=== PATIENT | female | born 1935 | race Caucasian/White ===

== ENCOUNTER → 2019-08-21 15:25 | Outpatient (BNVA) | payer MEDICARE, MEDICAID, SELFPAY | PROVIDERS: Family Provider Nurse Practitioner; PCP Nurse Practitioner; Visit Provider Nurse Practitioner | DX: E11.9 Type 2 diabetes mellitus without complications (principal); I10 Essential (primary) hypertension; E03.8 Other specified hypothyroidism | CPT/HCPCS: 80053; 80061; 83036; 84443 ==

== ENCOUNTER 2019-08-24 15:21 | Emergency (ER) | payer MEDICARE, MEDICAID, SELFPAY ==
[2019-08-24 15:27] VITALS: BP 182/88; PULSE 85; RESP 18; TEMP 36.4; O2SAT 93; BMI 32.8
[2019-08-24 15:37] VITALS: BP 182/88; PULSE 80; RESP 18; O2SAT 96
--- NOTE | 2019-08-24 16:24 | ED_ITS ---
HPI - Back Pain/Injury General: Chief Complaint: Back Pain/Injury Stated Complaint: back/shoulder/right arm pain Time Seen by Provider: 08/24/19 15:40 Source: patient and family Mode of arrival: ambulatory Limitations: no limitations History of Present Illness: HPI Narrative: Patient is a very pleasant 84-year-old female who presents to ED today along with family for complaints of pain between my shoulder blades that patient initially noticed while at rest 2 to 3 days ago; she states since that time pain has been intermittent but seems to be worsened with movement and improves by sitting still; patient states that she can sit in her recliner and kick her legs up her pain will completely subside; she denies any radicular symptoms over the past 2 to 3 days; she reports no chest pain, difficulty breathing, shortness of breath, palpitations, headache, numbness/tingling/weakness to face or extremities. Family brought patient in today because while they were driving with the patient she began complaining of right arm pain; she states the pain began in her right shoulder and then radiated down her right extremity; she denies numbness/tingling; she reports the pain can be aggravated by range of motion of her shoulder; she reports if she squeezes her forearm that seems to alleviate some of the pain; she has not noticed any redness/pallor, warmth, or swelling to the extremity; patient does report a fall several days ago but was evaluated at her PCP office and did not have any complaints of right arm or back pain; when questioned patient states she was doing some cleaning including sweeping and grabbing close out of a washing machine and wonders if maybe she could have strained something MD elicited complaint: back pain and other (R UE pain) Onset (ago): day(s) Timing: intermittent Similar Symptoms Previously: No Exacerbating factors: movement Relieving factors: immobilization and sitting upright Associated symptoms: Deny abdominal pain, chills, dysuria, fatigue, fever(s), nausea, syncope, urinary urgency or vomiting Review of Systems Const: Denies: fever, chills, body aches, fatigue, malaise or night sweats Eyes: Denies: change in vision or blurry vision Card: Denies: chest pain, palpitations, irregular heart rhythm, edema, swelling of feet/ankles, lightheadedness, syncope, pre-syncope, shortness of breath on exertion, shortness of breath when lying down, leg pain with exertion or bluish discoloration of hands/feet Resp: Denies: shortness of breath, productive cough, non-productive cough, pain on inspiration, change in phlegm color, coughing up blood or chest congestion GI: Denies: abdominal pain, nausea or vomiting : Denies: flank pain, difficulty urinating, painful urination, urinary frequency or urinary urgency Musc: Reports: back pain, extremity pain (R UE) and joint pain (R shoulder, elbow); Denies: neck pain, extremity swelling, joint swelling, redness, joint warmth, joint stiffness, limited range of motion, muscle cramps, muscle weakness or decrease in muscle mass Skin/Breast: Denies: rash, itching, redness, skin pain, skin tenderness, skin swelling or changes in skin color Neuro: Denies: headache, numbness in extremities, weakness in extremities, changes in sensation, lack of coordination, dizziness or slurred speech PFSH ED PFSH: Statuses (acute, chronic, etc) shown below reflect problem list status as previously entered and may not be historically accurate Medical History (Updated 08/24/19 @ 16:28 by VANGIE Pruitt) Adult onset hypothyroidism (Chronic) Anxiety (Chronic) HTN, goal below 130/80 (Chronic) Vitamin D deficiency (Chronic) Surgical History (Updated 08/16/19 @ 17:16 by WILL Vieira) History of hysterectomy (Acute) 2014 Family History (Updated 08/16/19 @ 16:02 by REKHA Douglas) Other Hypertension Social History (Updated 08/16/19 @ 15:37 by REKHA Douglas) Smoking and tobacco status: never smoked Smoking risk assessment/counseling performed?: No Alcohol intake: never Desire information about alcohol rehabilitation?: No Counseling given: No Desire information about substance/drug rehabilitation?: No Counseling given: No Adopted: No Caregiver/support person: No Lives independently: Yes Household members: none Housing: House Marital status: / Number of children: 5 service: No Current occupational status: retired and disabled Pets and animals: Yes Pets & animals: cat(s) History of recent travel: No Current gender identity: Female Physical Exam Const: COMMON NORMALS: no apparent distress, average body habitus, oriented x3, no limitations, healthy appearing, alert and well nourished HENMT: COMMON NORMALS: normocephalic and head/scalp atraumatic HEAD & SCALP: normocephalic and atraumatic Eye: COMMON NORMALS: PERRL and EOMs intact bilaterally PUPIL: Yes PERRL Neck/C-Spine: COMMON NORMALS: full ROM, supple and no meningeal signs CERVICAL SPINE: No pain with cervical ROM, No cervical spine tenderness and No paracervical muscle tenderness Chest: COMMONS NORMALS: inspection of chest normal and palpation of chest normal Resp: COMMON NORMALS: normal respiratory effort and clear to auscultation bilaterally AUSCULTATION: clear to auscultation bilaterally Cardio: COMMON NORMALS: regular rate and regular rhythm RATE: regular rate RHYTHM: regular rhythm : COMMON NORMALS: Yes no CVA tenderness BLADDER/KIDNEY EXAM: Yes no CVA tenderness Back/Pelvis: COMMON NORMALS: no CVA tenderness and thoracic and lumbar spine normal to inspection THORACIC SPINE/UPPER BACK: Yes normal to inspection, Yes thoracic ROM normal and No thoracic spinal tenderness Extremity: OTHER: pt reports pain to R scapula/trapezius musculature with ROM of shoulder joint but states that palpation makes the pain actually improve; she reports pain to her R forearm but again squeezing the forearm makes it feel good ; she reports pain again to R shoulder when she leans against it on the bed; there is no redness, swelling, color/temp changes to her R UE; she maintains full ROM of all joints; pulses are intact and equal bilaterally Neuro: COMMON NORMALS: oriented x3, CN's II-XII intact bilaterally, moves all extremities, no focal motor deficits and no sensory deficits noted SENSORIUM/ORIENTATION: Yes alert MENINGEAL SIGNS: Yes no meningeal signs SPEECH: speech normal MOTOR EXAM: no pronator drift Skin: COMMON NORMALS: no rashes or lesions noted GENERAL SKIN EXAM: no rashes or lesions noted Course Vital Signs: Vital signs: Vital Signs Temperature 97.5 F L 08/24/19 15:27 Pulse Rate 80 08/24/19 15:37 Respiratory Rate 18 08/24/19 15:37 Blood Pressure 182/88 08/24/19 15:37 Pulse Oximetry 96 08/24/19 15:37 MDM - Back Pain/Injury MDM Narrative: Medical decision making narrative: The family seems very concerned regarding patient's symptoms. I spent a great deal of time with the patient and their family performing a thorough history. I have no concern for any emergent pathology at this time based on that history and her physical examination. She has no indications for x-rays, ultrasounds, or other advanced imaging and I explained to family that these tests would most likely not yield any results as I feel patient's discomfort is solely musculoskeletal. Recommend patient follow-up with her primary care provider for continued discomfort. Discharge Plan Discharge Patient Disposition: Home, Self-Care Clinical Impression: Musculoskeletal pain Condition: Stable Prescriptions: No Action promethazine-DM 6.25-15 mg/5 mL syrup PO RF: 0 nystatin 100,000 unit/gram powder TOPICAL RF: 0 aspirin 325 mg tablet 325 mg PO QDAY RF: 0 albuterol sulfate [ProAir HFA] 90 mcg/actuation HFA aerosol inhaler 2 puff INHALATION QID RF: 0 diclofenac sodium [Voltaren] 1 % gel 2 gm TOPICAL QID PRNRF: 0 albuterol sulfate 2.5 mg /3 mL (0.083 %) solution for nebulization 2.5 mg INHALATION Q4H PRNRF: 0 amlodipine 5 mg tablet 5 mg PO QDAY Qty: 90 RF: 1 benazepril 40 mg tablet 40 mg PO QDAY Qty: 90 RF: 1 ergocalciferol (vitamin D2) 50,000 unit capsule 50,000 unit PO .on 1st and 16th Qty: 6 RF: 1 famotidine [Pepcid] 20 mg tablet 20 mg PO BID Qty: 180 RF: 1 furosemide 20 mg tablet 20 mg PO QAM Qty: 90 RF: 1 lactulose 10 gram/15 mL solution 2.5 ml PO QDAY Qty: 500 RF: 5 levothyroxine 75 mcg tablet 75 mcg PO QDAY Qty: 90 RF: 1 lovastatin 40 mg tablet 40 mg PO QDAY Qty: 90 RF: 1 metoprolol succinate 100 mg tablet extended release 24 hr 100 mg PO QDAY Qty: 90 RF: 1 montelukast 10 mg tablet 10 mg PO QDAY Qty: 90 RF: 1 Discharge Orders: Discharge Order (Routine); Ordered 08/24/19 Ordered By: Mona Sharma Referrals: Emily Decker, [employer] MANAGER-C [Primary Care Provider] - Activity Restrictions/Additional Instructions: As discussed your back pain, shoulder pain, and right arm pain was reproducible on physical examination and worse with movement. This points towards a musculoskeletal diagnosis. I do not feel there was any emergent pathology to your pain today. As discussed musculoskeletal pain is most beneficial with Aleve, Tylenol, ice/heat, rest, and time. Please follow-up with her primary care provider next week if patient's pain persists despite the above measures. Coding Level of Care Code ED Geriatric Personal Care Aide for Chg Fwd Exam Problem Focused
[2019-08-24] MEDS: ketorolac 30 mg/mL INJ IM (16:33)
--- NOTE | 2019-08-24 16:43 | PC.NURSE ---
0 s/s of reaction noted to injection site.
[2019-08-24 16:52] VITALS: BP 172/84; PULSE 62; RESP 18; TEMP 36.6; O2SAT 96
== END 2019-08-24 16:53 | disposition home or self-care (01) ==
PROVIDERS: Emergency Provider Physician Assistant; Family Provider Nurse Practitioner; PCP Nurse Practitioner
DX: M79.18 Myalgia, other site (principal); Z79.82 Long term (current) use of aspirin; I10 Essential (primary) hypertension; E03.9 Hypothyroidism, unspecified
CPT/HCPCS: 96372; 96374; 99281; 99284; J1885

== ENCOUNTER → 2019-08-27 14:24 | Outpatient (BNVA) | payer MEDICARE, MEDICAID, SELFPAY | PROVIDERS: Family Provider Nurse Practitioner; PCP Nurse Practitioner; Visit Provider Nurse Practitioner | DX: M79.18 Myalgia, other site (principal); I10 Essential (primary) hypertension; K59.01 Slow transit constipation; M79.631 Pain in right forearm | CPT/HCPCS: 73090; 74018 ==

== ENCOUNTER → 2020-05-20 15:46 | Outpatient (BNVA) | payer MEDICARE, MEDICAID, SELFPAY | PROVIDERS: Family Provider Nurse Practitioner; PCP Nurse Practitioner; Visit Provider Nurse Practitioner | DX: I10 Essential (primary) hypertension (principal); F41.9 Anxiety disorder, unspecified; E11.9 Type 2 diabetes mellitus without complications; E03.8 Other specified hypothyroidism; K21.9 Gastro-esophageal reflux disease without esophagitis; E55.9 Vitamin D deficiency, unspecified | CPT/HCPCS: 80053; 80061; 82306; 83036; 84443 ==

== ENCOUNTER → 2020-11-05 10:12 | Outpatient (BNVA) | payer MEDICARE, MEDICAID, SELFPAY | PROVIDERS: Family Provider Nurse Practitioner; PCP Nurse Practitioner; Visit Provider Nurse Practitioner | DX: I10 Essential (primary) hypertension (principal); E55.9 Vitamin D deficiency, unspecified; E03.8 Other specified hypothyroidism; E11.9 Type 2 diabetes mellitus without complications; M19.90 Unspecified osteoarthritis, unspecified site; K21.9 Gastro-esophageal reflux disease without esophagitis; K59.01 Slow transit constipation; J30.2 Other seasonal allergic rhinitis; F41.9 Anxiety disorder, unspecified | CPT/HCPCS: 80053; 80061; 82306; 83036; 84443 ==

== ENCOUNTER → 2020-12-18 11:08 | Outpatient (BNVA) | payer MEDICARE, MEDICAID, SELFPAY | PROVIDERS: Family Provider Nurse Practitioner; PCP Nurse Practitioner; Visit Provider Nurse Practitioner | DX: E03.8 Other specified hypothyroidism (principal); I10 Essential (primary) hypertension | CPT/HCPCS: 81000 ==

== ENCOUNTER 2021-01-21 13:34 | Outpatient (CLI) | payer MEDICARE, MEDICAID, SELFPAY ==
--- NOTE | 2021-01-21 14:15 | US_ITS ---
WS: [id number] ULTRASOUND THYROID TECHNIQUE: Ultrasound of the thyroid. CLINICAL INFORMATION: E03.8 - Other specified hypothyroidism COMPARISON: None. FINDINGS: Thyroid: Right and left thyroid lobes are heterogeneous in echotexture. Thyroid is somewhat enlarged for patient this age. Recommend correlation with thyroid function studies. Right thyroid lobe: 4.4 cm x 1.5 cm x 1.6 cm Left thyroid lobe: 4.3 cm x 1.1 cm x 1.6 cm. Isthmus: 0.4 mm. Cervical lymphadenopathy: None. US/US thyroid 15854 IMPRESSION: 1. Heterogeneous thyroid echotexture bilaterally. 2. Thyroid somewhat enlarged for patient this age. Recommend correlation with thyroid function studies. 3. No dominant nodules to target for biopsy.
== END 2021-01-21 13:35 | disposition home or self-care (01) ==
PROVIDERS: PCP Nurse Practitioner; Visit Provider Nurse Practitioner
DX: E03.8 Other specified hypothyroidism (principal)
CPT/HCPCS: 76536

== ENCOUNTER → 2021-05-12 15:33 | Outpatient (BNVA) | payer MEDICARE, MEDICAID, SELFPAY | PROVIDERS: PCP Nurse Practitioner; Visit Provider Nurse Practitioner | DX: E03.8 Other specified hypothyroidism (principal); E55.9 Vitamin D deficiency, unspecified; E11.9 Type 2 diabetes mellitus without complications | CPT/HCPCS: 80053; 80061; 82306; 83036; 84443 ==

== ENCOUNTER → 2021-12-01 10:22 | Outpatient (BNVA) | payer MEDICARE, MEDICAID, SELFPAY | PROVIDERS: PCP Nurse Practitioner; Visit Provider Nurse Practitioner | DX: I10 Essential (primary) hypertension (principal); K21.9 Gastro-esophageal reflux disease without esophagitis; K59.01 Slow transit constipation; E03.8 Other specified hypothyroidism; J30.2 Other seasonal allergic rhinitis; F41.9 Anxiety disorder, unspecified; E55.9 Vitamin D deficiency, unspecified; E11.9 Type 2 diabetes mellitus without complications | CPT/HCPCS: 80053; 80061; 81000; 82306; 83036; 84443 ==

== ENCOUNTER → 2022-01-11 10:43 | Outpatient (BNVA) | payer MEDICARE, MEDICAID, SELFPAY | PROVIDERS: PCP Nurse Practitioner; Visit Provider Nurse Practitioner | DX: R26.81 Unsteadiness on feet (principal); M19.072 Primary osteoarthritis, left ankle and foot; M25.50 Pain in unspecified joint | CPT/HCPCS: 73030; 73610 ==

== ENCOUNTER → 2022-02-22 17:03 | Outpatient (BNVA) | payer MEDICARE, MEDICAID, SELFPAY | PROVIDERS: PCP Nurse Practitioner; Visit Provider Nurse Practitioner | DX: Z20.822 Contact with and (suspected) exposure to COVID-19 (principal) | CPT/HCPCS: 87635 ==

== ENCOUNTER → 2022-05-05 10:20 | Outpatient (BNVA) | payer MEDICARE, MEDICAID, SELFPAY | PROVIDERS: PCP Nurse Practitioner; Visit Provider Nurse Practitioner | DX: I10 Essential (primary) hypertension (principal); H04.129 Dry eye syndrome of unspecified lacrimal gland; K21.9 Gastro-esophageal reflux disease without esophagitis; E03.8 Other specified hypothyroidism; J30.2 Other seasonal allergic rhinitis; F41.9 Anxiety disorder, unspecified; E11.9 Type 2 diabetes mellitus without complications; Z23 Encounter for immunization | CPT/HCPCS: 80053; 80061; 83036 ==

== ENCOUNTER → 2022-09-15 09:24 | Outpatient (BNVA) | payer MEDICARE, MEDICAID, SELFPAY | PROVIDERS: PCP Nurse Practitioner; Visit Provider Nurse Practitioner | DX: E11.9 Type 2 diabetes mellitus without complications (principal) | CPT/HCPCS: 80053; 82043; 83036; 84443 ==

== ENCOUNTER → 2022-12-06 09:12 | Outpatient (BNVA) | payer MEDICARE, MEDICAID, SELFPAY | PROVIDERS: PCP Nurse Practitioner; Visit Provider Nurse Practitioner | DX: M79.605 Pain in left leg (principal) | CPT/HCPCS: 73502; 73562 ==

== ENCOUNTER 2023-01-06 15:35 | Outpatient (CLI) | payer MEDICARE, MEDICAID, SELFPAY ==
--- NOTE | 2023-01-06 16:00 | CT_ITS ---
WS: [id number] CT HEAD NONCONTRAST HISTORY: I10 - Essential (primary) hypertension TECHNIQUE: Contiguous axial imaging performed through the brain in 2.5 mm imaging. Bone and soft tiss ue windows. Sagittal and coronal reformats reviewed. All CT scans at [facility] use at least one of these dose optimization techniques: automated exposure control; mA and/or kV adjustment per pa tient size (includes targeted exams where dose is matched to clinical indication); or iterative recon struction. DLP: 1019.16 mGy.cm COMPARISON: 09/15/2017 No acute intracranial hemorrhage, midline shift or mass effect. Mild bilateral symmetric atrophy and small vessel ischemic changes. No prior infarcts. Mild cerebella r atrophy. Ventricles: Normal size with no hydrocephalus. Mild intracranial carotid atherosclerotic plaques. Small amount of calcification in the distal verteb ral arteries. Paranasal sinuses: As visualized are clear. Mastoid air cells: Well pneumatized. Calvarium and scalp: Skull is intact with no soft tissue edema or swelling. CT/CT head wo con* 99152 IMPRESSION: 1. No acute intracranial hemorrhage or edema. 2. Mild atrophy and small vessel ischemic disease. Very similar to the prior s blazedy from 2018. 3. Mild calcified plaque in the intracranial carotid and distal vertebral yulissa joey.
== END 2023-01-06 15:36 | disposition home or self-care (01) ==
LOC: RAD 15:40
PROVIDERS: PCP Nurse Practitioner; Visit Provider Nurse Practitioner
DX: I10 Essential (primary) hypertension (principal); R41.3 Other amnesia; E03.8 Other specified hypothyroidism
CPT/HCPCS: 70450; 80053; 81003; 82607; 84443; 85025

== ENCOUNTER → 2023-06-27 10:18 | Outpatient (BNVA) | payer MEDICARE, MEDICAID, SELFPAY | PROVIDERS: PCP Nurse Practitioner; Visit Provider Nurse Practitioner Family | DX: R41.0 Disorientation, unspecified (principal); E03.8 Other specified hypothyroidism | CPT/HCPCS: 80053; 81000; 83735; 84443; 85025 ==

== ENCOUNTER 2023-07-19 15:19 | Outpatient (CLI) | payer MEDICARE, MEDICAID, SELFPAY ==
--- NOTE | 2023-07-19 15:30 | CT_ITS ---
WS: [id number] CT HEAD TECHNIQUE: Noncontrast CT of the head obtained from the skullbase to the vertex. CLINICAL INFORMATION: R41.0 - Disorientation, unspecified COMPARISON: CT head 01/06/2023 DLP: 997.[address] scans at [facility] use at least one of these dose optimization techniques: automated e xposure control; mA and/or kV adjustment per patient size (includes targeted exams where dose is matc hed to clinical indication); or iterative reconstruction. FINDINGS: No evidence of intracranial hemorrhage or mass effect. Ventricular system and basal cisterns are ruffin nt. Moderate small vessel changes with moderate parenchymal volume loss. Intracranial vascular calcif ication. No extra-axial fluid collections. No evidence of mass or mass effect. Trace fluid LEFT sphenoid sinus. Paranasal sinuses are well aerated. Mastoid air cells are well aerat ed. Intracranial vascular calcification. IMPRESSION: 1. No evidence of intracranial hemorrhage or mass effect. 2. Moderate small vessel changes. Moderate parenchymal volume loss. 3. Intracranial vascular calcification. 4. No acute intracranial findings.
== END 2023-07-19 15:20 | disposition home or self-care (01) ==
LOC: RAD 15:19
PROVIDERS: PCP Nurse Practitioner; Visit Provider Nurse Practitioner
DX: R41.0 Disorientation, unspecified (principal); I67.9 Cerebrovascular disease, unspecified; G93.89 Other specified disorders of brain
CPT/HCPCS: 70450

== ENCOUNTER → 2023-09-21 13:37 | Outpatient (BNVA) | payer MEDICARE, MEDICAID, SELFPAY | PROVIDERS: PCP Nurse Practitioner; Visit Provider Nurse Practitioner | DX: R07.89 Other chest pain (principal); K59.01 Slow transit constipation; M79.671 Pain in right foot; M19.071 Primary osteoarthritis, right ankle and foot | CPT/HCPCS: 71046; 73630; 74018 ==

== ENCOUNTER → 2023-12-27 10:39 | Outpatient (BNVA) | payer MEDICARE, MEDICAID, SELFPAY | PROVIDERS: PCP Nurse Practitioner; Visit Provider Nurse Practitioner | DX: E11.9 Type 2 diabetes mellitus without complications (principal); E03.8 Other specified hypothyroidism; F41.9 Anxiety disorder, unspecified; I10 Essential (primary) hypertension; Z79.899 Other long term (current) drug therapy | CPT/HCPCS: 80053; 80061; 82607; 83036; 84443; 85025 ==

== ENCOUNTER → 2024-03-13 11:16 | Outpatient (BNVA) | payer MEDICARE, MEDICAID, SELFPAY | PROVIDERS: PCP Nurse Practitioner; Visit Provider Nurse Practitioner | DX: E03.8 Other specified hypothyroidism (principal) | CPT/HCPCS: 84439; 84443; 84481 ==

== ENCOUNTER 2024-03-21 06:00 | Outpatient (RCR) | payer MEDICARE, MEDICAID, SELFPAY | END 2024-03-24 18:00 | disposition home or self-care (01) | LOC: TPT 06:00 | PROVIDERS: Visit Provider Nurse Practitioner | DX: R26.81 Unsteadiness on feet (principal) | CPT/HCPCS: 97162 ==

== ENCOUNTER 2024-03-25 06:00 | Outpatient (RCR) | payer MEDICARE, MEDICAID, SELFPAY | END 2024-04-23 23:59 | disposition home or self-care (01) | LOC: TPT 06:00 | PROVIDERS: Visit Provider Nurse Practitioner | DX: R26.81 Unsteadiness on feet (principal) | CPT/HCPCS: 97110 ==

== ENCOUNTER 2024-04-27 12:58 | Outpatient (CLI) | payer MEDICARE, MEDICAID, SELFPAY ==
--- NOTE | 2024-04-27 13:02 | XR_ITS ---
WS: [id number] Exam: XR hip LT 2-3V wo/w pel* [id number] Date/Time of Exam: 04/27/2024 1:04 PM Reason For Exam: M25.562 - Pain in left knee No acute fracture or dislocation. Moderate degenerative change of the hip joint. Periarticular soft t issue calcifications. IMPRESSION1. Moderate DJD. No fracture.
--- NOTE | 2024-04-27 13:02 | XR_ITS ---
WS: [id number] Exam: XR sacrum coccyx min 2V [id number] Date/Time of Exam: 04/27/2024 1:04 PM Reason For Exam: M25.562 - Pain in left knee The inferior 2 coccygeal vertebral are displaced posteriorly. This may be acute or chronic. No other sign of sacrococcygeal fracture or dislocation. DJD of the SI joints. Pars defect of L5 with grade 2 spondylolisthesis of L5 on S1. XR/XR sacrum coccyx min 2V [id number] IMPRESSION: 1. Posterior displacement of the distal 2 coccygeal vertebra that could be seco ndary to past or recent trauma or could be developmental. No definite fracture is seen. 2. Moderate DJD of the SI joints. 3. L5 pars defect with grade 2 spondylolisthesis of L5 on the sacral base.
== END 2024-04-27 12:59 | disposition home or self-care (01) ==
LOC: RAD 12:59
PROVIDERS: PCP Nurse Practitioner; Visit Provider Nurse Practitioner
DX: M25.562 Pain in left knee (principal); M53.3 Sacrococcygeal disorders, not elsewhere classified; M43.17 Spondylolisthesis, lumbosacral region; M16.12 Unilateral primary osteoarthritis, left hip
CPT/HCPCS: 72220; 73502

== ENCOUNTER → 2024-05-23 12:11 | Outpatient (BNVA) | payer MEDICARE, MEDICAID, SELFPAY | PROVIDERS: PCP Nurse Practitioner; Visit Provider Nurse Practitioner | DX: E03.8 Other specified hypothyroidism (principal) | CPT/HCPCS: 84439; 84443; 84481 ==

== ENCOUNTER 2024-07-19 10:04 | Emergency (ER) | payer MEDICARE, MEDICAID, SELFPAY ==
--- NOTE | 2024-07-19 10:06 | XR_ITS ---
WS: [id number] PORTABLE CHEST HISTORY: ams COMPARISON: 05/21/2024 Lungs are clear and well expanded. No pleural effusion or pneumothorax. Cardiac size: Normal. Mediastinum/Aorta: Mildly ectatic thoracic aorta. Bilateral AC joint and glenohumeral joint arthropathy. XR/XR chest 1V portable [id number] IMPRESSION: Unremarkable portable chest.
[2024-07-19 10:11] VITALS: BP 128/81; PULSE 64; RESP 18; TEMP 36.7; O2SAT 97; BMI 35.4
--- NOTE | 2024-07-19 10:11 | ECG_ITS ---
[facility] Test Date: 2024-07-19 Pat Name: Esme Banerjee Department: Room: Gender: Female Wholesaler: : 1935 Requested By: Earl Silverman Order Number: [id number] Mac MD: Michael Mccormack M.D. Measurements Intervals [place] Rate: 61 P: 12 PA: 212 QRS: -22 QRSD: 77 T: 27 QT: 388 QTc: 392 Interpretive Statements SINUS RHYTHM WITH FIRST DEGREE AV BLOCK BORDERLINE LEFT AXIS DEVIATION [QRS AXIS < -20] LOW QRS VOLTAGE IN PRECORDIAL LEADS [QRS DEFLECTION < 1.0 mV IN CHEST LEADS] MINIMAL VOLTAGE CRITERIA FOR LVH, CONSIDER NORMAL VARIANT [MEETS CRITERIA IN ONE OF: R(aVL), S(V1), R(V5), R(V5/V6)+S(V1)] MINIMAL ST DEPRESSION [0.025+ mV ST DEPRESSION] Compared to ECG 09/15/2017 14:02:23 First degree AV block now present Low QRS voltage now present ST (T wave) deviation now present Myocardial infarct finding no longer present Electronically Signed On 07-20-2024 18:35:07 ALMOND BLANCHER OPERATOR by Michael Mccormack M.D. [id number]
--- NOTE | 2024-07-19 10:38 | PC.NURSE ---
glucose via FS 103
[2024-07-19 10:39] LABS: Glucose Point of Care 103 mg/dL (70-110)
--- NOTE | 2024-07-19 10:42 | ED_ITS ---
HPI - Altered Mental Status 2 General: Chief Complaint: Altered Mental Status Stated Complaint: AMS Time Seen by Provider: 07/19/24 10:15 History of Present Illness: 88-year-old female is presenting with se veral days of mild disorientation confusion, forgetting to take her medications, inability to make her own bed. But no focal motor neurodeficits no trauma no fever no vomiting. Upon arrival here patient is comfortable denies any complaints. Family at bedside do state that she is doing better today than the past few days. Related Data Home Medications Medication Instructions Recorded Confirmed aspirin 325 mg tablet 325 mg PO QDAY 08/16/19 07/19/24 lactulose 10 gram/15 mL oral 30 ml PO QDAY PRN constipation 07/19/24 07/19/24 solution levothyroxine 75 mcg tablet 75 mcg PO DAILY 07/19/24 07/19/24 lovastatin 40 mg tablet 40 mg PO QPM 07/19/24 07/19/24 Previous Rx's Medication Instructions Recorded cholecalciferol (vitamin D3) 125 125 mcg PO DAILY #30 caps 03/12/21 mcg (5,000 unit) capsule DME: Dennis #1 ea 01/11/22 blood sugar diagnostic (OneTouch #50 ea 05/05/22 Ultra Test strips) blood-glucose meter (OneTouch #1 ea 05/05/22 Ultra2 Meter kit) tizanidine 2 mg tablet 2 mg PO Q12H PRN muscle spasticity 04/24/24 #30 tabs aripiprazole 2 mg tablet (Abilify) 2 mg PO DAILY #90 tabs 05/23/24 benazepril 40 mg tablet 80 mg (2 x 40 mg) PO DAILY #180 05/23/24 tabs famotidine 40 mg tablet 40 mg PO DAILY #90 tabs 05/23/24 furosemide 20 mg tablet 20 mg PO QAM #90 tabs 05/23/24 levocetirizine 5 mg tablet 5 mg PO DAILY allergies #90 tabs 05/23/24 liothyronine 5 mcg tablet (Cytomel) 5 mcg PO DAILY #90 tabs 05/23/24 metoprolol succinate 50 mg 50 mg PO QDAY #90 tabs 05/23/24 tablet,extended release 24 hr sennosides 8.6 mg-docusate sodium 2 tab-cap (2 x 8.6-50 mg) PO DAILY 10/30/24 50 mg tablet (Colace 2-In-1) #180 tabs sertraline 100 mg tablet 100 mg PO DAILY #90 tabs 05/23/24 Allergies Allergy/AdvReac Type Severity Reaction Status Date / Time No Known Allergies Allergy Verified 07/19/24 10:17 Review of Systems 2 Const: Denies: fever(s) or chills Eyes: Denies: change in vision or blurry vision ENMT: Denies: throat pain Card: Denies: chest pain or palpitations Resp: Denies: dyspnea or productive cough GI: Denies: abdominal pain, nausea or vomiting : Reports: dysuria; Denies: flank pain, difficulty voiding or urinary frequency Musc: Denies: neck pain or back pain Skin/Breast: Denies: rash Neuro: Reports: confusion; Denies: headache(s), numbness in extremities, weakness in extremities, difficulty walking or frequent falls Jim/Lymph: Denies: easy bruising or easy bleeding PFSH ED 2 PFSH: Medical History Cerebrovascular small vessel disease Screening mammography declined Osteoarthritis Chronic seasonal allergic rhinitis Gastroesophageal reflux Type 2 diabetes mellitus without complications Constipation, slow transit Adult onset hypothyroidism Anxiety Vitamin D deficiency Surgical History History of hysterectomy 2014 Family History Other Hypertension Social History Smoking and tobacco/nicotine status: never used tobacco/nicotine Second hand smoke exposure: No Alcohol intake: never Substance/Drug Use: never Adopted: No Caregiver/support person: No Lives independently: Yes Household members: none Housing: House Marital status: / Number of children: 5 service: No Current occupational status: retired and disabled Current occupational exposures/hazards: No Pets and animals: Yes Pets & animals: cat(s) Sexually active: No Do you think of yourself as: Straight/Heterosexual Current gender identity: Female Physical Exam 2 Narrative: Const: no acute distress, cooperative, well appearing HENMT: normocephalic, atraumatic, normal facial exam, posterior oropharynx normal w/ no tonsillar erythema or exudates Eye: Equal, round and reactive pupils present and EOMs intact bilaterally Neck/C-Spine: trachea midline, no stridor, no midline c spine tenderness , no paraspinal neck muscle tenderness Chest: no rib or chest wall tenderness Resp: normal respiratory effort, No retractions, No use of accessory muscles and clear to auscultation bilaterally Cardio: COMMON NORMALS: regular rate and regular rhythm RATE: regular rate RHYTHM: regular rhythm GI: Normal to inspection, no tenderness, nondistended, normoactive bowel sounds present Extremity: COMMON NORMALS: no pedal edema Neuro: GCS 15, AO x 4, normal speech, CN intact, normal motor exam, normal sensory exam, no ataxia Psych: cooperative, appropriate mood and affect Skin: no rashes or lesions Course 2 Vital Signs: Vital signs: Vital Signs Temperature 98.0 F 07/19/24 10:11 Pulse Rate 58 L 07/19/24 11:31 Respiratory Rate 18 07/19/24 10:11 Blood Pressure 102/72 07/19/24 11:31 Pulse Oximetry 94 07/19/24 11:31 Oxygen Delivery Me thod Room Air 07/19/24 10:11 MDM - Altered Mental Status Medical Decision Making Patient presented with mild disorientation that is actually improving today, her vital signs are stable and she is without any complaints. She is alert and oriented and is comfortable. Her physical exam is benign without abnormal findings. Workup here demonstrates no significant pathology including normal CT of the head, no pneumonia chest x-ray no UTI and urinalysis. Labs without significant abnormalities as well. Patient is comfortable she is stable for discharge at this time. I have discussed all results with the family and the patient. Lab Data 07/19/24 10:45 07/19/24 10:45 Radiology Impressions Chest X-Ray 07/19/24 10:06 IMPRESSION: Unremarkable portable chest. Head CT 07/19/24 10:42 IMPRESSION: 1. No acute intracranial hemorrhage or edema. 2. Moderate atrophy and small vessel disease. Minimal progression since 07/19/2023. Laboratory Results WBC 10.09 10^3/uL (3.29-11.43) 07/19/24 10:45 RBC 4.73 10^6/uL (3.85-5.65) 07/19/24 10:45 Hgb 14.50 g/dL (11.27-16.99) 07/19/24 10:45 Hct 43.7 % (36-47) 07/19/24 10:45 MCV 92.4 fl (85-98) 07/19/24 10:45 MCH 30.7 pg (27-33) 07/19/24 10:45 MCHC 33.2 g/dL (30-55) 07/19/24 10:45 RDW 13.0 % (12.1-15.1) 07/19/24 10:45 Plt Count 239 10^3/cmm (157-399) 07/19/24 10:45 MPV 8.8 fL (7.4-10.4) 07/19/24 10:45 Neut % (Auto) 67.2 % 07/19/24 10:45 Lymph % (Auto) 23.2 % 07/19/24 10:45 [place] % (Auto) 7.4 % 07/19/24 10:45 Eos % (Auto) 1.2 % 07/19/24 10:45 Baso % (Auto) 0.5 % 07/19/24 10:45 Neut # (Auto) 6.78 10^3/uL (1.8-7.7) 07/19/24 10:45 Lymph # (Auto) 2.3 10^3/uL (0.8-4.8) 07/19/24 10:45 [place] # (Auto) 0.8 10^3/uL (0.2-0.9) 07/19/24 10:45 Eos # (Auto) 0.1 10^3/uL (0.0-0.8) 07/19/24 10:45 Baso # (Auto) 0.1 10^3/uL (0.0-0.1) 07/19/24 10:45 Nucleated RBC % (auto) 0 % 07/19/24 10:45 Nucleated RBCs # 0.0 /100WBC 07/19/24 10:45 PT 13.20 SECONDS (12.1-14.9) 07/19/24 10:45 INR 0.98 (0.8-1.2) 07/19/24 10:45 Sodium 134 mmol/L (136-145) L 07/19/24 10:45 Potassium 4.7 mmol/L (3.5-5.1) 07/19/24 10:45 Chloride 97 mmol/L (98-107) L 07/19/24 10:45 Carbon Dioxide 25 mmol/L (22-29) 07/19/24 10:45 Anion Gap 16.7 (5-19) 07/19/24 10:45 BUN 22 mg/dL (8-23) 07/19/24 10:45 Creatinine 1.2 mg/dL (0.5-0.9) H 07/19/24 10:45 GFR Calculation Not Reportable 07/19/24 10:45 Glucose 109 mg/dL (65-115) 07/19/24 10:45 POC Glucose 103 mg/dL (70-110) 07/19/24 10:35 Calculated Osmolality 282 mOsm/kg (285-295) L 07/19/24 10:45 Calcium 9.7 mg/dL (8.5-10.5) 07/19/24 10:45 Magnesium 1.8 mg/dL (1.7-2.3) 07/19/24 10:45 Total Bilirubin 0.2 mg/dL (0.15-1.2) 07/19/24 10:45 AST 17 U/L (0-32) 07/19/24 10:45 ALT 10 U/L (0-33) 07/19/24 10:45 Alkaline Phosphatase 76 U/L (35-105) 07/19/24 10:45 Total Protein 7.2 g/dL (6.6-8.7) 07/19/24 10:45 Albumin 4.1 g/dL (3.5-5.2) 07/19/24 10:45 Globulin 3.1 g/dL (1.3-4.6) 07/19/24 10:45 TSH 2.05 uIU/mL (0.27-4.20) 07/19/24 10:45 Urine Color Yellow (Yellow) 07/19/24 10:28 Urine Appearance Clear (CLEAR) 07/19/24 10:28 Urine pH TNP 07/19/24 10:28 Ur Specific [place] Not Reportable 07/19/24 10:28 Urine Protein Not Reportable 07/19/24 10:28 Urine Glucose (UA) Not Reportable 07/19/24 10:28 Urine Ketones Not Reportable 07/19/24 10:28 Urine Blood Not Reportable 07/19/24 10:28 Urine Nitrate Not Reportable 07/19/24 10:28 Urine Bilirubin Not Reportable 07/19/24 10:28 Urine Urobilinogen Not Reportable 07/19/24 10:28 Ur Leukocyte Esterase Not Reportable 07/19/24 10:28 Urine RBC Rare /hpf (0-2) 07/19/24 10:28 Urine WBC None /hpf (0-5) 07/19/24 10:28 Ur Squamous Epith Cells 0-4 /hpf (0-5) H 07/19/24 10:28 Amorphous Sediment Not Reportable 07/19/24 10:28 Urine Bacteria None /hpf (NONE) 07/19/24 10:28 Hyaline Casts 0-4 /lpf H 07/19/24 10:28 All radiology interpretation(s) finalized by discharge Discharge Plan Discharge Patient Disposition: Home Clinical Impression: Confusion Condition: Stable Prescriptions: No Action aspirin 325 mg tablet 325 mg PO QDAY cholecalciferol (vitamin D3) 125 mcg (5,000 unit) capsule 125 mcg PO DAILY Qty: 30 5RF (DME) DME: Walker Unit See Rx Instructions .ROUTE .MEDSUPPLY Qty: 1 0RF Rx Instructions: Code E0143 and E0156 walker 4 wheels and seat (DME) OneTouch Ultra Test Strip See Rx Instructions .Route Qty: 50 5RF Rx Instructions: one day (DME) blood-glucose meter [OneTouch Ultra2 Meter] Kit See Rx Instructions .Route Qty: 1 0RF Rx Instructions: As directed tizanidine 2 mg tablet 2 mg PO Q12H PRN (Reason: muscle spasticity) Qty: 30 0RF aripiprazole [Abilify] 2 mg tablet 2 mg PO DAILY Qty: 90 0RF benazepril 40 mg tablet 80 mg PO DAILY Qty: 180 1RF famotidine 40 mg tablet 40 mg PO DAILY Qty: 90 1RF furosemide 20 mg tablet 20 mg PO QAM Qty: 90 1RF levocetirizine 5 mg tablet 5 mg PO DAILY Qty: 90 1RF liothyronine [Cytomel] 5 mcg tablet 5 mcg PO DAILY Qty: 90 0RF metoprolol succinate 50 mg tablet extended release 24 hr 50 mg PO QDAY Qty: 90 1RF sennosides-docusate sodium [Colace 2-In-1] 8.6-50 mg tablet 2 tab-cap PO DAILY Qty: 180 1RF sertraline 100 mg tablet 100 mg PO DAILY Qty: 90 1RF levothyroxine 75 mcg tablet 75 mcg PO DAILY lovastatin 40 mg tablet 40 mg PO QPM lactulose 10 gram/15 mL solution 30 ml PO QDAY PRN (Reason: constipation) Discharge Orders: Discharge ED (Routine); Ordered 07/19/24 Ordered By: Peter Resendiz Referrals: Emily Decker, [employer] [Primary Care Provider] - Patient Instructions: Altered Mental Status (ED), Opioid Safety, Pain Management Coding Level of Care Code ED Duplicating Machine Mechanic for Elisa Tyson
--- NOTE | 2024-07-19 10:42 | CT_ITS ---
WS: [id number] CT HEAD NONCONTRAST HISTORY: ams TECHNIQUE: Contiguous axial imaging performed through the brain. Bone and soft tissue windows. Sagitt al and coronal reformats reviewed. All CT scans at [facility] use at least one of these dose optimization techniques: automated exposure control; mA and/or kV adjustment per patient size (includ es targeted exams where dose is matched to clinical indication); or iterative reconstruction. DLP: 1019.18 mGy.cm COMPARISON: 07/19/2023 No acute intracranial hemorrhage, midline shift or mass effect. Moderate symmetric atrophy and small vessel disease. Ventricles: Normal size with no hydrocephalus. No inferior displacement of the cerebellar tonsils. Paranasal sinuses: As visualized are clear. Mastoid air cells: Well pneumatized. Calvarium and scalp: Skull is intact with no soft tissue edema or swelling. Intracranial calcifications along the carotid arteries. CT/CT head wo con* [id number] IMPRESSION: 1. No acute intracranial hemorrhage or edema. 2. Moderate atrophy and small vessel disease. Minimal progression since 2022.
[2024-07-19] MEDS: sodium chloride 0.9% 500 ML 999 ML IV (10:50)
[2024-07-19 10:51] LABS: Add Urine Microscopic? YES; Hyaline Casts Urine 0-4 /lpf; RBC Urine RARE /hpf (0-2); Squamous Epithelial Cell Urine 0-4 /hpf (0-5); UA Manual Slide Review YES; UA Slide Review UA Slide Review Perf; Urine Appearance Clear (CLEAR); Urine Color Yellow (Yellow)
[2024-07-19 10:59] LABS: Basophils # 0.1 10^3/uL (0.0-0.1); Basophils % 0.5 %; Eosinophils # 0.1 10^3/uL (0.0-0.8); Eosinophils % 1.2 %; Hematocrit 43.7 % (36-47); Lymphocytes # 2.3 10^3/uL (0.8-4.8); Lymphocytes % 23.2 %; Mean Corpuscular HGB Conc 33.2 g/dL (30-55); Mean Corpuscular Hemoglobin 30.7 pg (27-33); Mean Corpuscular Volume 92.4 fl (85-98); Mean Platelet Volume 8.8 fL (7.4-10.4); Monocytes # 0.8 10^3/uL (0.2-0.9); Monocytes % 7.4 %; Neutrophils # 6.78 10^3/uL (1.8-7.7); Neutrophils % 67.2 %; Nucleated Red Blood Cells % 0 %; Platelet Count 239 10^3/cmm (157-399); Red Blood Count 4.73 10^6/uL (3.85-5.65); White Blood Count 10.09 10^3/uL (3.29-11.43)
--- NOTE | 2024-07-19 11:07 | PC.NURSE ---
PER FAMILY AT TRIAGE, PATIENT LKW TUESDAY.
[2024-07-19 11:13] LABS: INR 0.98 (0.8-1.2)
[2024-07-19 11:28] LABS: Alanine Aminotransferase 10 U/L (0-33); Albumin Level 4.1 g/dL (3.5-5.2); Alkaline Phosphatase 76 U/L (35-105); Aspartate Amino Transferase 17 U/L (0-32); Blood Urea Nitrogen 22 mg/dL (8-23); Calcium 9.7 mg/dL (8.5-10.5); Carbon Dioxide 25 mmol/L (22-29); Chloride 97 mmol/L (98-107); Creatinine Clr Calc Pharmacy 34.6475; Globulin 3.1 g/dL (1.3-4.6); Glucose 109 mg/dL (65-115); Magnesium 1.8 mg/dL (1.7-2.3); Osmolality Calculated 282 mOsm/kg (285-295); Sodium 134 mmol/L (136-145); Thyroid Stimulating Hormone 2.05 uIU/mL (0.27-4.20); Total Bilirubin 0.2 mg/dL (0.15-1.2); Total Protein 7.2 g/dL (6.6-8.7)
[2024-07-19 11:31] VITALS: BP 102/72; PULSE 58; O2SAT 94
[2024-07-19 11:31] LABS: Anion Gap 16.7 (5-19); Potassium 4.7 mmol/L (3.5-5.1)
[2024-07-19 12:05] VITALS: BP 102/72; PULSE 56; O2SAT 98
== END 2024-07-19 12:07 | disposition home or self-care (01) ==
PROVIDERS: Emergency Medicine; Emergency Provider Emergency Medicine; PCP Nurse Practitioner
DX: R41.0 Disorientation, unspecified (principal); Z79.82 Long term (current) use of aspirin; E11.9 Type 2 diabetes mellitus without complications
CPT/HCPCS: 36416; 70450; 71045; 80053; 81001; 82962; 83735; 84443; 85025; 85610; 87086; 93005; 99285; J7040

== ENCOUNTER → 2024-12-07 10:55 | Outpatient (BNVA) | payer MEDICARE, MEDICAID, SELFPAY | PROVIDERS: PCP Nurse Practitioner; Visit Provider Nurse Practitioner | DX: E55.9 Vitamin D deficiency, unspecified (principal); E11.9 Type 2 diabetes mellitus without complications | CPT/HCPCS: 80053; 80061; 82306; 82607; 83036; 84443; 85025 ==